=== PATIENT | female | born 1955 | race Caucasian/White ===

== ENCOUNTER → 2024-04-01 12:04 | Outpatient (REF) | payer MEDICARE, SELFPAY | LOC: WDC 12:04 | PROVIDERS: ATTENDING PHYSICIAN Obstetrics & Gynecology; FAMILY PHYSICIAN Family Medicine | DX: Z12.31 Encounter for screening mammogram for malignant neoplasm of breast (principal) | CPT/HCPCS: 77063; 77067 ==

== ENCOUNTER → 2025-04-05 12:50 | Outpatient (REF) | payer MEDICARE, SELFPAY | LOC: WDC 12:50 | PROVIDERS: ATTENDING PHYSICIAN Family Medicine | DX: Z12.31 Encounter for screening mammogram for malignant neoplasm of breast (principal) | CPT/HCPCS: 77063; 77067 ==

== ENCOUNTER → 2025-04-19 07:34 | Outpatient (REF) | payer MEDICARE, SELFPAY | LOC: RAD 07:34 | PROVIDERS: ATTENDING PHYSICIAN Family Medicine | DX: Z78.0 Asymptomatic menopausal state (principal) | CPT/HCPCS: 77080 ==